=== PATIENT | male | born 1985 | race Caucasian/White ===

== ENCOUNTER 2022-11-27 04:22 | Emergency (ER) | payer OTHER ==
[2022-11-27 04:35] VITALS: BP 151/98; PULSE 77; RESP 16; TEMP 98.9; BMI 25.8
[2022-11-27] MEDS ORDERED: AMOX TR/POT CLAV 875MG/125MG TABLETS (FP) PO ONE (04:47)
[2022-11-27] MEDS ORDERED: AMOX TR/POT CLAV 875MG/125MG TABLETS (FP) ONE (04:49)
== END 2022-11-27 05:01 | disposition home or self-care (01) ==
LOC: FER 04:22
DX: K08.89 Other specified disorders of teeth and supporting structures (principal)
CPT/HCPCS: 99283-25